=== PATIENT | female | born 1995 | race Caucasian/White ===

== ENCOUNTER 2016-06-09 19:25 | Emergency (ER) | payer OTHER ==
[~2016-06-09 19:25] MED LIST: IBUPROFEN800 MG PO; NO MEDICATIONS; PAIN & FEVER500 MG PO; TAMIFLU75 M1 PO; [UNRECOGNIZED DRUG - OTHER] PO
== END 2016-06-09 19:51 | disposition home or self-care (01) ==
LOC: SED 19:25
DX: R11.10 Vomiting, unspecified (principal); F17.210 Nicotine dependence, cigarettes, uncomplicated
CPT/HCPCS: 84703; 99283

== ENCOUNTER 2016-07-19 16:36 | Emergency (ER) | payer OTHER | END 2016-07-19 18:40 | disposition home or self-care (01) | LOC: CED 16:36 → CFTX 16:36 | DX: J06.9 Acute upper respiratory infection, unspecified (principal); F17.210 Nicotine dependence, cigarettes, uncomplicated | CPT/HCPCS: 84703; 87651; 99283 ==

== ENCOUNTER 2016-11-03 23:05 | Emergency (ER) | payer OTHER ==
[~2016-11-03] VITALS: Ht 157.5 cm; Wt 78.0 kg
[2016-11-04 02:56] LABS: URINE SOURCE CLEAN CATCH
[2016-11-04 03:07] LABS: URINE APPEARANCE CLEAR; URINE BILIRUBIN NEG (NEG); URINE BLOOD NEG (NEG); URINE COLOR YELLOW; URINE GLUCOSE NEG (NEG); URINE KETONE NEG (NEG); URINE LEUKOCYTE ESTERASE NEG (NEG); URINE NITRATE NEG (NEG); URINE PH 5.5 (5-8); URINE PROTEIN NEG (NEG); URINE SPECIFIC GRAVITY 1.022 (1.003-1.035)
[2016-11-07 00:04] LABS: CHLAMYDIA TRACH Not Detected (Not Detected); N GONOR Not Detected (Not Detected)
== END 2016-11-04 03:36 | disposition home or self-care (01) ==
LOC: CED 23:05
PROVIDERS: Emergency Medicine
DX: N73.0 Acute parametritis and pelvic cellulitis (principal); F17.200 Nicotine dependence, unspecified, uncomplicated
CPT/HCPCS: 81003; 84703; 87491; 87591; 87808; 87905; 96372; 99284; J0696

== ENCOUNTER 2016-11-07 08:49 | Emergency (ER) | payer OTHER ==
[2016-11-07] MEDS ORDERED: VIBRAMYCIN100 M1 PO (08:58)
[2016-11-07] MEDS ORDERED: FLAGYL250 M1 PO (08:58)
[2016-11-07] MEDS ORDERED: ZOFRAN ODT4 M1 PO (08:59)
== END 2016-11-07 10:30 | disposition home or self-care (01) ==
LOC: SED 08:49
DX: K29.00 Acute gastritis without bleeding (principal); F17.200 Nicotine dependence, unspecified, uncomplicated
CPT/HCPCS: 96372; 99283; J0500